=== PATIENT | female | born 1995 | race Hispanic/Latino ===

== ENCOUNTER 2018-04-26 16:24 | Emergency (ER) | payer OTHER ==
[2018-04-26 16:37] VITALS: BP 116/70; PULSE 59; RESP 16; TEMP 98.5; O2SAT 99
--- NOTE | 2018-04-26 17:10 | ED PDOC ---
HPI: General Adult Time Seen by Provider: 04/26/18 16:40 Chief Complaint (Nursing): Abnormal Skin Integrity Chief Complaint (Provider): Abnormal Skin Integrity History Per: Patient History/Exam Limitations: no limitations Onset/Duration Of Symptoms: Other (few months) Current Symptoms Are (Timing): Still Present Additional Complaint(s): 22 year old female presents to the ED for evaluation of a growth next to her anus for the past few months. She states that it is not necessarily painful, but does notice it there. She denies taking any medication for her symptoms. Otherwise, (-) bloody stool, (-) abdominal pain, (-) history of constipation. LMP: unknown, has IUD in place PMD: in [place] Past Medical History Reviewed: Historical Data, Nursing Documentation, Vital Signs Vital Signs: Last Vital Signs Temp 98.5 F 04/26/18 16:35 Pulse 59 L 04/26/18 16:35 Resp 16 04/26/18 16:35 BP 116/70 04/26/18 16:35 Pulse Ox 99 04/30/18 16:32 - Medical History PMH: No Chronic Diseases - Surgical History Other surgeries: wisdom teeth extraction - Family History Family History: States: Unknown Family Hx - Social History Current smoker - smoking cessation education provided: Yes Alcohol: Social Drugs: Denies - Home Medications Home Medications: Ambulatory Orders Medication Instructions Recorded Jaimie Reaves [Az] 40 pad TOP DAILY PRN #50 pad 04/26/18 - Allergies Allergies/Adverse Reactions: Allergies Allergy/AdvReac Type Severity Reaction Status Date / Time No Known Allergies Allergy Verified 04/26/18 16:35 Review of Systems ROS Statement: Except As Marked, All Systems Reviewed And Found Negative Gastrointestinal: Negative for: Abdominal Pain, Constipation, Other (bloody stool) Skin: Positive for: Other (growth next to anus) Physical Exam - Reviewed Nursing Documentation Reviewed: Yes Vital Signs Reviewed: Yes - Physical Exam Comments: GENERAL APPEARANCE: Patient is awake, alert, oriented x 3, in no acute distress. Skin: Warm and dry, (-) cyanosis Neck: Supple, FROM ENT: Mucus membranes moist. Airway patent, (-) stridor. Pulmonary: lungs clear to auscultation bilaterally, no rhonchi, no wheezing. Cardiac: regular rate and rhythm, no murmur, no gallop. Abdomen: Soft, nontender, nondistended (-) CVA tenderness (-) guarding (-) rebound. Extremities: No deformity, full range of motion, no tenderness. Gait steady. Rectal: .5cm x 1cm flesh colored non-thrombosed hemorrhoid at 6 oclock position of anus, (-) tenderness, (-) erythema, (-) anal fissure. Netting Inspector RN Sophia. - ECG O2 Sat by Pulse Oximetry: 99 (RA) Pulse Ox Interpretation: Normal Medical Decision Making Medical Decision Making: Time: 17:00 Initial Impression: hemorrhoid Initial Plan: --No further treatment is necessary in ED at this time. Patient made aware of findings during rectal exam. All questions answered at this time. She is to be discharged with prescription for Tucks to use as needed for symptoms and advised to follow up with her PMD. Vitals stable. Patient states she fully agrees with and understands discharge instructions. States that she agrees with the plan and disposition. Verbalized and repeated discharge instructions and plan. I have given the patient opportunity to ask any additional questions. Scribe Attestation: Documented by Shaista Cedeno, acting as a scribe for Catalina Paul PA-C. Provider Scribe Attestation: All medical record entries made by the Scribe were at my direction and personally dictated by me. I have reviewed the chart and agree that the record accurately reflects my personal performance of the history, physical exam, medical decision making, and the department course for this patient. I have also personally directed, reviewed, and agree with the discharge instructions and disposition. Disposition - Clinical Impression Clinical Impression: Hemorrhoid - Patient ED Disposition Is Patient to be Admitted: No Counseled Patient/Family Regarding: Diagnosis, Need For Followup, Rx Given - Disposition Referrals: FAMILY PROVIDER,NO [Family Provider] - Disposition: Routine/Home Disposition Time: 17:18 Condition: STABLE Additional Instructions: FOLLOW UP WITH PMD FOR FURTHER EVALUATION. RETURN TO ED WITH ANY NEW OR WORSENING SYMPTOMS. Prescriptions: Jaimie Reaves [Tucks] 40 pad TOP DAILY PRN #50 pad PRN Reason: Hemorrhoids Instructions: Hemorrhoids Forms: [facility] (South Korean) Print Language: GREENLANDIC - POA Present On Arrival: None
== END 2018-04-26 17:25 | disposition home or self-care (01) ==
LOC: H.ER 16:24
DX: K64.9 Unspecified hemorrhoids (principal); Z97.5 Presence of (intrauterine) contraceptive device